=== PATIENT | male | born 1965 | race Caucasian/White ===

== ENCOUNTER 2018-12-01 10:40 | Observation (INO) | payer BC ==
[~2018-12-01] VITALS: Ht 180.3 cm; Wt 99.0 kg
[2018-12-01 11:08] LABS: BASO % 1 % (0-3); EOS # 0.1 x10^3/uL (0.0-0.7); EOS % 2 % (0-3); HEMATOCRIT 44.4 % (39.0-53.0); HEMOGLOBIN 14.6 g/dL (13.0-17.5); LYMPH # 2.3 x10^3/uL (1.0-4.8); LYMPH % 40 % (24-48); MEAN CORPUSCULAR HEMOGLOBIN 30 pg (25-35); MEAN CORPUSCULAR HGB CONC 33 g/dL (31-37); MEAN CORPUSCULAR VOLUME 90 fL (79-100); MONO # 0.3 x10^3/uL (0.0-1.1); MONO % 6 % (0-9); NEUT % 52 % (31-73); PLATELET COUNT 298 x10^3/uL (140-400); RED BLOOD COUNT 4.92 x10^6/uL (4.30-5.70); RED CELL DISTRIBUTION WIDTH 13.3 % (11.5-14.5); WHITE BLOOD COUNT 5.8 x10^3/uL (4.0-11.0)
--- NOTE | 2018-12-01 11:19 | RAD ---
CHEST AP ONLY Clinical indications: CHEST PAIN COMPARISON: None available. Findings: Old granulomatous disease is evident. No acute lung infiltrate or pleural effusion or pulmonary edema or lung mass or pneumothorax is seen. The heart size, pulmonary vasculature, mediastinum and both caridad are unremarkable. Impression: No acute radiographic abnormality is seen. Electronically signed by: Haresh Petersen MD (12/01/2018 11:14 AM) [facility]
[2018-12-01 11:20] LABS: CALCIUM 9.2 mg/dL (8.5-10.1); GFR 78.8; POTASSIUM 4.1 mmol/L (3.5-5.1); PROTHROMBIN TIME PATIENT 12.5 SEC (11.7-14.0)
[2018-12-01 11:25] LABS: ALBUMIN 3.7 g/dL (3.4-5.0); DIRECT BILIRUBIN 0.2 mg/dL (0.0-0.2); TOTAL BILIRUBIN 0.6 mg/dL (0.2-1.0); TOTAL PROTEIN 7.4 g/dL (6.4-8.2)
[2018-12-01] MEDS ORDERED: ONDANSETRON PF 4 MG/2 ML VIAL. IV PRN ×2 (12:00→12:45)
[2018-12-01] MEDS ORDERED: NITROGLYCERIN SUBLINGUAL 0.4 MG BOTTLE OF 25. SL PRN (12:00)
[2018-12-01] MEDS ORDERED: MORPHINE SULFATE 4 MG/ML VIAL. IV PRN (12:00)
[2018-12-01] MEDS ORDERED: ACETAMINOPHEN 500 MG TABLET PO PRN (12:45)
[2018-12-01] MEDS ORDERED: NICOTINE 21MG PATCH. TD PRN (12:45)
[2018-12-01] MEDS ORDERED: diphenhydrAMINE HCL 25 MG CAPSULE PO PRN (12:45)
--- NOTE | 2018-12-01 13:16 | EKG ---
[facility] [address] [place] [address] Test Date: 2018-12-01 Test Time: 10:45:28 Pat Name: KURT CHAPMAN Department: Room: Gender: M Assessment Analyst: : 1965 Requested By: RADHA COX Order Number: [id number] Reading MD: Harish Robertson Measurements Intervals [place] Rate: 59 P: -22 FL: 154 QRS: 6 QRSD: 88 T: 15 QT: 382 QTc: 378 Interpretive Statements SINUS RHYTHM NORMAL ECG Electronically Signed On 12-07-2018 9:32:28 [employer] PROFESSIONAL by Harish Robertson
--- NOTE | 2018-12-01 13:18 | PDOC1 ---
History and Physical Date of Admission Date of Admission DATE: 12/01/18 TIME: 13:14 Identification/Chief Complaint Chief Complaint chest pressure Source Source: Caregiver, Chart review, Patient History of Present Illness History of Present Illness 33-year-old male with strong family history of CAD, father at age 35 and at age 60s from CHF, chest pressure midsternal for the past 5 days. He admits he has been stressed lately. No diaphoresis or presyncopal symptoms. No identifiable alleviating factors. NO radiation to the jaw or arm, EKG and first troponin negative but admitted to rule out because of strong family history. Patient denies smoking or alcohol or street drugs. Patient does not take any home meds, nondiabetic, no known cardiopulmonary disease personally Past Medical History Cardiovascular: No pertinent hx Pulmonary: No pertinent hx GI: No pertinent hx Heme/Onc: No pertinent hx Hepatobiliary: No pertinent hx Psych: No pertinent hx Rheumatologic: No pertinent hx Infectious disease: No pertinent hx ENT: No pertinent hx Renal/: No pertinent hx Endocrine: No pertinent hx Dermatology: No pertinent hx Past Surgical History Past Surgical History: Total knee replacement Family History Family History: Coronary Artery Disease, Heart Disease Social History Smoke: No ALCOHOL: none Drugs: None Current Medications Current Medications Current Medications Ondansetron HCl (Zofran) 4 mg PRN Q8HRS PRN IV NAUSEA/VOMITING; Start 12/01/18 at 12:00; Stop 12/01/18 at 12:38; Status DC Morphine Sulfate (Morphine Sulfate) 2 mg PRN Q2HR PRN IV PAIN; Start 12/01/18 at 12:00; Stop 12/02/18 at 11:59 Sodium Chloride 1,000 ml @ 100 mls/hr Q10H IV ; Start 12/01/18 at 11:47; Stop 12/02/18 at 11:46 Nitroglycerin (Nitrostat) 0.4 mg PRN Q5MIN PRN SL CHEST PAIN; Start 12/01/18 at 12:00 Ondansetron HCl (Zofran) 4 mg PRN Q6HRS PRN IV NAUSEA/VOMITING; Start 12/01/18 at 12:45 Diphenhydramine HCl (Benadryl) 25 mg PRN QHS PRN PO INSOMNIA; Start 12/01/18 at 12:45 Acetaminophen (Tylenol) 500 mg PRN Q6HRS PRN PO MILD PAIN / TEMP; Start at 12:45 Nicotine (Nicoderm Cq 21mg) 1 patch PRN DAILY PRN TD SMOKING CESSATION; Start 12/01/18 at 12:45 Allergies Allergies: Coded Allergies: No Known Drug Allergies (Unverified , 12/01/18) ROS Review of System As per history of present illness, the rest of ROS 14 point negative Physical Exam General: Alert, Oriented X3, Cooperative, No acute distress HEENT: Atraumatic, PERRLA, EOMI Lungs: Clear to auscultation, Normal air movement Heart: S1S2, RRR, no thrills, no rubs, no gallops, no murmurs Cardiovascular: S1, S2 Abdomen: Normal bowel sounds, Soft, No tenderness, No hepatosplenomegaly, No masses Male Genitals Exam: normal genitalia, normal prostate Rectal Exam: not examined PELVIC: Nml ext genitalia Extremities: No clubbing, No cyanosis, No edema, Normal pulses, No tenderness/ swelling Skin: No rashes, No breakdown, No significant lesion Neuro: Normal gait, Normal speech, Strength at 5/5 X4 ext, Normal tone, Sensation intact, Cranial nerves 3-12 NL, Reflexes 2+ Psych/Mental Status: Mental status NL, Mood NL Vitals Vitals Vital Signs Date Time Temp Pulse Resp B/P (MAP) Pulse Ox O2 Delivery O2 Flow Rate FiO2 12/01/18 10:42 98.0 65 16 122/67 (85) 99 Room Air 98.0 Labs Labs Laboratory Tests Test 12/01/18 10:55 White Blood Count 5.8 x10^3/uL (4.0-11.0) Red Blood Count 4.92 x10^6/uL (4.30-5.70) Hemoglobin 14.6 g/dL (13.0-17.5) Hematocrit 44.4 % (39.0-53.0) Mean Corpuscular Volume 90 fL (79-100) Mean Corpuscular Hemoglobin 30 pg (25-35) Mean Corpuscular Hemoglobin Concent 33 g/dL (31-37) Red Cell Distribution Width 13.3 % (11.5-14.5) Platelet Count 298 x10^3/uL (140-400) Neutrophils (%) (Auto) 52 % (31-73) Lymphocytes (%) (Auto) 40 % (24-48) Monocytes (%) (Auto) 6 % (0-9) Eosinophils (%) (Auto) 2 % (0-3) Basophils (%) (Auto) 1 % (0-3) Neutrophils # (Auto) 3.0 x10^3uL (1.8-7.7) Lymphocytes # (Auto) 2.3 x10^3/uL (1.0-4.8) Monocytes # (Auto) 0.3 x10^3/uL (0.0-1.1) Eosinophils # (Auto) 0.1 x10^3/uL (0.0-0.7) Basophils # (Auto) 0.0 x10^3/uL (0.0-0.2) Prothrombin Time 12.5 SEC (11.7-14.0) Prothromb Time International Ratio 1.0 (0.8-1.1) Activated Partial Thromboplast Time 25 SEC (24-38) Sodium Level 140 mmol/L (136-145) Potassium Level 4.1 mmol/L (3.5-5.1) Chloride Level 104 mmol/L (98-107) Carbon Dioxide Level 31 mmol/L (21-32) Anion Gap 5 (6-14) Blood Urea Nitrogen 18 mg/dL (8-26) Creatinine 1.0 mg/dL (0.7-1.3) Estimated GFR (Cockcroft-Gault) 78.8 Glucose Level 91 mg/dL (70-99) Calcium Level 9.2 mg/dL (8.5-10.1) Total Bilirubin 0.6 mg/dL (0.2-1.0) Direct Bilirubin 0.2 mg/dL (0.0-0.2) Aspartate Amino Transf (AST/SGOT) 18 U/L (15-37) Alanine Aminotransferase (ALT/SGPT) 35 U/L (16-63) Alkaline Phosphatase 68 U/L (46-116) Troponin I Quantitative < 0.017 ng/mL (0.000-0.055) HU-Xis-T-Type Natriuretic Peptide 40 pg/mL (0-124) Total Protein 7.4 g/dL (6.4-8.2) Albumin 3.7 g/dL (3.4-5.0) Lipase 138 U/L (73-393) Laboratory Tests Test 12/01/18 10:55 White Blood Count 5.8 x10^3/uL (4.0-11.0) Red Blood Count 4.92 x10^6/uL (4.30-5.70) Hemoglobin 14.6 g/dL (13.0-17.5) Hematocrit 44.4 % (39.0-53.0) Mean Corpuscular Volume 90 fL (79-100) Mean Corpuscular Hemoglobin 30 pg (25-35) Mean Corpuscular Hemoglobin Concent 33 g/dL (31-37) Red Cell Distribution Width 13.3 % (11.5-14.5) Platelet Count 298 x10^3/uL (140-400) Neutrophils (%) (Auto) 52 % (31-73) Lymphocytes (%) (Auto) 40 % (24-48) Monocytes (%) (Auto) 6 % (0-9) Eosinophils (%) (Auto) 2 % (0-3) Basophils (%) (Auto) 1 % (0-3) Neutrophils # (Auto) 3.0 x10^3uL (1.8-7.7) Lymphocytes # (Auto) 2.3 x10^3/uL (1.0-4.8) Monocytes # (Auto) 0.3 x10^3/uL (0.0-1.1) Eosinophils # (Auto) 0.1 x10^3/uL (0.0-0.7) Basophils # (Auto) 0.0 x10^3/uL (0.0-0.2) Prothrombin Time 12.5 SEC (11.7-14.0) Prothromb Time International Ratio 1.0 (0.8-1.1) Activated Partial Thromboplast Time 25 SEC (24-38) Sodium Level 140 mmol/L (136-145) Potassium Level 4.1 mmol/L (3.5-5.1) Chloride Level 104 mmol/L (98-107) Carbon Dioxide Level 31 mmol/L (21-32) Anion Gap 5 (6-14) Blood Urea Nitrogen 18 mg/dL (8-26) Creatinine 1.0 mg/dL (0.7-1.3) Estimated GFR (Cockcroft-Gault) 78.8 Glucose Level 91 mg/dL (70-99) Calcium Level 9.2 mg/dL (8.5-10.1) Total Bilirubin 0.6 mg/dL (0.2-1.0) Direct Bilirubin 0.2 mg/dL (0.0-0.2) Aspartate Amino Transf (AST/SGOT) 18 U/L (15-37) Alanine Aminotransferase (ALT/SGPT) 35 U/L (16-63) Alkaline Phosphatase 68 U/L (46-116) Troponin I Quantitative < 0.017 ng/mL (0.000-0.055) AK-Jjt-X-Type Natriuretic Peptide 40 pg/mL (0-124) Total Protein 7.4 g/dL (6.4-8.2) Albumin 3.7 g/dL (3.4-5.0) Lipase 138 U/L (73-393) VTE Prophylaxis Ordered VTE Prophylaxis Devices: Yes VTE Pharmacological Prophylaxi: Yes Assessment/Plan Assessment/Plan Chest pain rule out ACS Strong family history CAD, premature Recent stress PLAN: Has been nothing by mouth until cardiac eval Trend enzymes Observation status Doubtful ACS in origin RADHA BUSH MD Dec 01, 2018 13:18
[2018-12-01] MEDS: IV NORMAL SALINE 1000ML BAG 1,000 ML IV SCH ×2 (13:52→21:47)
--- NOTE | 2018-12-01 14:29 | PHYS DOC ---
Past Medical History Past Medical History: No Pertinent History Past Surgical History: Knee Replacement, Tonsillectomy Additional Past Surgical Histo: L KNEE, Alcohol Use: Rarely Drug Use: None Adult General Chief Complaint Chief Complaint: CHEST PAIN HPI HPI 53-year-old gentleman presenting the emergency department today with chest pressure described as a tightening pressure in his chest intermittent for about 2 days. He was seen in urgent care earlier given 4 aspirin which mildly improved his symptoms. Currently the pressure is approximately 2 out of 10. He denies diabetes hyperlipidemia or high cholesterol but does have a family history of heart disease. His father had a heart attack at age 35. His father recently of a massive heart attack as well.The patient denies unilateral leg swelling hemoptysis family or personal history of blood clotting disorders. The pt denies recent immobilization or surgery. Past medical history: Denies Surgical history: Knee and tonsils Social history denies smoking drinks occasionally denies IV drug use. Review of systems is negative for sweatiness of the skin. He denies nausea vomiting fevers or chills. All other review of systems is negative unless otherwise noted in history of present illness. ED course: 53-year-old woman presenting the emergency department today with chest pressure. EKG obtained and reviewed by myself shows sinus rhythm with a regular rate. ST segments congruent. Not suggestive of ACS. Chest x-ray and blood work obtained as well which were unremarkable for acute pathology. Given his story, and family history of heart disease I felt we should keep him for monitoring. I placed admission orders and the patient was then admitted for further treatment and care. Review of Systems Review of Systems SEE ABOVE. Current Medications Current Medications Current Medications Medications (Trade) Dose Ordered Sig/Saji Start Time Stop Time Status Last Admin Dose Admin Sodium Chloride 1,000 ml @ 100 mls/hr Q10H 12/01/18 11:47 12/02/18 11:46 12/01/18 13:52 100 MLS/HR Allergies Allergies Allergies Coded Allergies Type Severity Reaction Last Updated Verified No Known Drug Allergies 12/01/18 No Physical Exam Physical Exam SEE ABOVE Constitutional: Well developed, well nourished, no acute distress, non-toxic appearance. [] HENT: Normocephalic, atraumatic, bilateral external ears normal, oropharynx moist, no oral exudates, nose normal. [] Eyes: PERRLA, EOMI, conjunctiva normal, no discharge. [] Neck: Normal range of motion, no tenderness, supple, no stridor. [] Cardiovascular:Heart rate regular rhythm, no murmur [] Lungs & Thorax: Bilateral breath sounds clear to auscultation [] Abdomen: Bowel sounds normal, soft, no tenderness, no masses, no pulsatile masses. [] Skin: Warm, dry, no erythema, no rash. [] Back: No tenderness, no CVA tenderness. [] Extremities: No tenderness, no cyanosis, no clubbing, ROM intact, no edema. [] Neurologic: Alert and oriented X 3, normal motor function, normal sensory function, no focal deficits noted. [] Psychologic: Affect normal, judgement normal, mood normal. [] Current Patient Data Vital Signs Vital Signs Date Time Temp Pulse Resp B/P (MAP) Pulse Ox O2 Delivery O2 Flow Rate FiO2 12/01/18 10:42 98.0 65 16 122/67 (85) 99 Room Air 98.0 Lab Values Laboratory Tests Test 12/01/18 10:55 White Blood Count 5.8 x10^3/uL (4.0-11.0) Red Blood Count 4.92 x10^6/uL (4.30-5.70) Hemoglobin 14.6 g/dL (13.0-17.5) Hematocrit 44.4 % (39.0-53.0) Mean Corpuscular Volume 90 fL (79-100) Mean Corpuscular Hemoglobin 30 pg (25-35) Mean Corpuscular Hemoglobin Concent 33 g/dL (31-37) Red Cell Distribution Width 13.3 % (11.5-14.5) Platelet Count 298 x10^3/uL (140-400) Neutrophils (%) (Auto) 52 % (31-73) Lymphocytes (%) (Auto) 40 % (24-48) Monocytes (%) (Auto) 6 % (0-9) Eosinophils (%) (Auto) 2 % (0-3) Basophils (%) (Auto) 1 % (0-3) Neutrophils # (Auto) 3.0 x10^3uL (1.8-7.7) Lymphocytes # (Auto) 2.3 x10^3/uL (1.0-4.8) Monocytes # (Auto) 0.3 x10^3/uL (0.0-1.1) Eosinophils # (Auto) 0.1 x10^3/uL (0.0-0.7) Basophils # (Auto) 0.0 x10^3/uL (0.0-0.2) Prothrombin Time 12.5 SEC (11.7-14.0) Prothrombin Time INR 1.0 (0.8-1.1) PTT 25 SEC (24-38) Sodium Level 140 mmol/L (136-145) Potassium Level 4.1 mmol/L (3.5-5.1) Chloride Level 104 mmol/L (98-107) Carbon Dioxide Level 31 mmol/L (21-32) Anion Gap 5 (6-14) L Blood Urea Nitrogen 18 mg/dL (8-26) Creatinine 1.0 mg/dL (0.7-1.3) Estimated GFR (Cockcroft-Gault) 78.8 Glucose Level 91 mg/dL (70-99) Calcium Level 9.2 mg/dL (8.5-10.1) Total Bilirubin 0.6 mg/dL (0.2-1.0) Direct Bilirubin 0.2 mg/dL (0.0-0.2) Aspartate Amino Transferase (AST) 18 U/L (15-37) Alanine Aminotransferase (ALT) 35 U/L (16-63) Alkaline Phosphatase 68 U/L (46-116) Troponin I Quantitative < 0.017 ng/mL (0.000-0.055) DH-Ltr-H-Type Natriuretic Peptide 40 pg/mL (0-124) Total Protein 7.4 g/dL (6.4-8.2) Albumin 3.7 g/dL (3.4-5.0) Lipase 138 U/L (73-393) Thyroid Stimulating Hormone (TSH) 1.241 uIU/mL (0.358-3.74) Laboratory Tests 12/01/18 10:55 Laboratory Tests 12/01/18 10:55 EKG EKG [] Radiology/Procedures Radiology/Procedures [] Course & Med Decision Making Course & Med Decision Making Pertinent Labs and Imaging studies reviewed. (See chart for details) [] Dragon Disclaimer Dragon Disclaimer This electronic medical record was generated, in whole or in part, using a voice recognition dictation system. Departure Departure Impression: Primary Impression: Chest pain Disposition: ADMITTED INPATIENT Admitting Physician: Dulce Briceno Condition: STABLE Referrals: NO PCP (PCP) RADHA COX MD Dec 01, 2018 14:29
--- NOTE | 2018-12-01 15:22 | PDOC2 ---
CARDIAC CONSULT DATE OF CONSULT Date of Consult DATE: 12/01/18 TIME: 15:09 REASON FOR CONSULT Reason for Consult: Chest pain REFERRING PHYSICIAN Referring Physician: Kobi SOURCE Source: Chart review, Patient HISTORY OF PRESENT ILLNESS HISTORY OF PRESENT ILLNESS This is a pleasant 53 yo male admitted for complains of chest pain. He reports this as midchest pressure nonradiating. No nausea associated with this, no jaw or arm pain. Denies any diaphoresis. In the last 2 days he has been feeling irritable and could not figure out why. No new medications. He does take no GERD medications but takes chronic for months of about 660 mg of naproxen daily for his chronic knee pain. Denies any recent falls, heavy lifting, long distance travel. No exertional CP nor GONZALEZ. No HTN, DM or HLP. He takes vit C and penssaid to his right knee. IN the last yr he has gained about 20 pounds. No anxiety or depression. PAST MEDICAL HISTORY Past Medical History OA PAST SURGICAL HISTORY Past Surgical History: Total knee replacement (left) FAMILY HISTORY Family History: Coronary Artery Disease (father at 35 yo) SOCIAL HISTORY Smoke: No ALCOHOL: none Drugs: None Lives: with Family CURRENT MEDICATIONS CURRENT MEDICATIONS Current Medications Medications (Trade) Dose Ordered Sig/Saji Route PRN Reason Start Time Stop Time Status Last Admin Dose Admin Sodium Chloride 1,000 ml @ 100 mls/hr Q10H IV 12/01/18 11:47 12/02/18 11:46 12/01/18 13:52 Nitroglycerin (Nitrostat) 0.4 mg PRN Q5MIN PRN SL CHEST PAIN 12/01/18 12:00 12/01/18 13:53 ALLERGIES ALLERGIES: Coded Allergies: No Known Drug Allergies (Unverified , 12/01/18) ROS Review of System 14 point ROS evaluated with pertinent positives noted per HPI PHYSICAL EXAM General: Alert, Oriented X3, Cooperative, No acute distress HEENT: Atraumatic, Mucous membr. moist/pink Lungs: Clear to auscultation, Normal air movement Heart: Regular rate (SR), Normal S1, Normal S2, No murmurs Abdomen: Soft, No tenderness Extremities: No cyanosis, No edema Skin: No breakdown, No significant lesion Neuro: Normal speech, Sensation intact Psych/Mental Status: Mental status NL, Mood NL MUSCULOSKELETAL: Osteoarthritic changes both hands VITALS VITALS Vital Signs Date Time Temp Pulse Resp B/P (MAP) Pulse Ox O2 Delivery O2 Flow Rate FiO2 12/01/18 13:53 62 119/70 12/01/18 10:42 98.0 16 99 Room Air 98.0 LABS Lab: Laboratory Tests Test 12/01/18 10:55 White Blood Count 5.8 x10^3/uL (4.0-11.0) Red Blood Count 4.92 x10^6/uL (4.30-5.70) Hemoglobin 14.6 g/dL (13.0-17.5) Hematocrit 44.4 % (39.0-53.0) Mean Corpuscular Volume 90 fL (79-100) Mean Corpuscular Hemoglobin 30 pg (25-35) Mean Corpuscular Hemoglobin Concent 33 g/dL (31-37) Red Cell Distribution Width 13.3 % (11.5-14.5) Platelet Count 298 x10^3/uL (140-400) Neutrophils (%) (Auto) 52 % (31-73) Lymphocytes (%) (Auto) 40 % (24-48) Monocytes (%) (Auto) 6 % (0-9) Eosinophils (%) (Auto) 2 % (0-3) Basophils (%) (Auto) 1 % (0-3) Neutrophils # (Auto) 3.0 x10^3uL (1.8-7.7) Lymphocytes # (Auto) 2.3 x10^3/uL (1.0-4.8) Monocytes # (Auto) 0.3 x10^3/uL (0.0-1.1) Eosinophils # (Auto) 0.1 x10^3/uL (0.0-0.7) Basophils # (Auto) 0.0 x10^3/uL (0.0-0.2) Prothrombin Time 12.5 SEC (11.7-14.0) Prothromb Time International Ratio 1.0 (0.8-1.1) Activated Partial Thromboplast Time 25 SEC (24-38) Sodium Level 140 mmol/L (136-145) Potassium Level 4.1 mmol/L (3.5-5.1) Chloride Level 104 mmol/L (98-107) Carbon Dioxide Level 31 mmol/L (21-32) Anion Gap 5 (6-14) Blood Urea Nitrogen 18 mg/dL (8-26) Creatinine 1.0 mg/dL (0.7-1.3) Estimated GFR (Cockcroft-Gault) 78.8 Glucose Level 91 mg/dL (70-99) Calcium Level 9.2 mg/dL (8.5-10.1) Total Bilirubin 0.6 mg/dL (0.2-1.0) Direct Bilirubin 0.2 mg/dL (0.0-0.2) Aspartate Amino Transf (AST/SGOT) 18 U/L (15-37) Alanine Aminotransferase (ALT/SGPT) 35 U/L (16-63) Alkaline Phosphatase 68 U/L (46-116) Troponin I Quantitative < 0.017 ng/mL (0.000-0.055) XE-Shx-F-Type Natriuretic Peptide 40 pg/mL (0-124) Total Protein 7.4 g/dL (6.4-8.2) Albumin 3.7 g/dL (3.4-5.0) Lipase 138 U/L (73-393) Thyroid Stimulating Hormone (TSH) 1.241 uIU/mL (0.358-3.74) ASSESSMENT/PLAN ASSESSMENT/PLAN Atypical CP: likely GI potentially NSAID induced. Doubt ACS. Family hx of premature CAD: Father at 35 yo with IN Recommendations 1. Will need PPI. Defer analgesic to PCP 2. Lipid panel, TTE. and trend troponin 3. Given his significant family hx of premature CAD will consider for outpt stress test unless trop and TTE shows significant changes. LUIS LAL APRN Dec 01, 2018 15:22
[2018-12-01 15:45] VITALS: BP 144/71
--- NOTE | 2018-12-01 16:06 | CARD ---
MR#: [id number] Date of Study: 12/01/2018 Ordering Physician: LUIS LAL, Referring Physician: RADHA BUSH, Tech: Chiara Elliott APPROVED REPORT EXAM: Two-dimensional and M-mode echocardiogram with Doppler and color Doppler. Other Information Quality : GoodHR: 62bpm INDICATION Chest Pain 2D DIMENSIONS RVDd2.8 (2.9-3.5cm)Left Atrium(2D)3.8 (1.6-4.0cm) IVSd1.0 (0.7-1.1cm)Aortic Root(2D)2.7 (2.0-3.7cm) LVDd5.1 (3.9-5.9cm)LVOT Diameter2.1 (1.8-2.4cm) PWd1.4 (0.7-1.1cm)LVDs3.3 (2.5-4.0cm) FS (%) 36.4 %SV82.6 ml LVEF(%)65.8 (>50%) Aortic Valve AoV Peak Sonido.127.5cm/sAoV VTI22.2cm AO Peak GR.6.5mmHgLVOT Peak Sonido.100.5cm/s LVOT VTI 19.42cmAO Mean GR.4mmHg ZAKIYA (VMAX)2.19wy7LHK (VTI)3.14cm2 Mitral Valve MV E Apoeuotr68.4cm/sMV DECEL [id number] MV A Zjoaunws38.0cm/sMV MOT99rr E/A Ratio1.6MVA (PHT)5.09cm2 TDI E/Lateral E'6.7E/Medial E'7.7 Pulmonary Valve PV Peak Oslkbsff121.8cm/sPV Peak Grad.9mmHg Tricuspid Valve TR P. Uexgpkai688lc/sRAP TVDBXICZ8zhKd TR Peak Gr.74zjOhWUKD55tnCv Pulmonary Vein S1 Wqworiiw08.2cm/sD2 Ppaplukw47.5cm/s PVa [id number] LEFT VENTRICLE The left ventricle is normal size. There is borderline concentric left ventricular hypertrophy. The l eft ventricular systolic function is normal and the ejection fraction is within normal range. The Eje ction Fraction is 50-55%. There is normal LV segmental wall motion. The left ventricular diastolic fu nction and filling is normal for age. RIGHT VENTRICLE The right ventricle is normal size. There is normal right ventricular wall thickness. The right ventr icular systolic function is normal. ATRIA The left atrium size is normal. The right atrium size is normal. The interatrial septum is intact wit h no evidence for an atrial septal defect or patent foramen ovale as noted on 2-D or Doppler imaging. AORTIC VALVE The aortic valve is thickened but opens well. Doppler and Color Flow revealed no significant aortic r egurgitation. There is no significant aortic valvular stenosis. MITRAL VALVE The mitral valve is normal in structure and function. There is no evidence of mitral valve prolapse. There is no mitral valve stenosis. Doppler and Color Flow revealed trace mitral regurgitation. TRICUSPID VALVE The tricuspid valve is normal in structure and function. Doppler and Color Flow revealed trace tricus pid regurgitation. There is no tricuspid valve stenosis. PULMONIC VALVE The pulmonic valve is not well visualized. Doppler and Color Flow revealed no pulmonic valvular regur gitation. There is no pulmonic valvular stenosis. GREAT VESSELS The aortic root is normal in size. The IVC is normal in size and collapses >50% with inspiration. PERICARDIAL EFFUSION There is no evidence of significant pericardial effusion. Critical Notification Critical Value: No <Conclusion> The left ventricular systolic function is normal and the ejection fraction is within normal range. Th e Ejection Fraction is 50-55%. There is normal LV segmental wall motion. Septal motion suggestive of conduction defect. Signed by : Lalit Sood, Electronically Approved : 12/01/2018 16:04:02
[2018-12-01 16:09] LABS: CHOLESTEROL/HDL RATIO 4.9
[2018-12-01] MEDS: PANTOPRAZOLE 40 MG TABLET.DR. PO SCH (17:22)
[2018-12-01 19:00] VITALS: BP 120/61
[2018-12-01] MEDS ORDERED: ATORVASTATIN CALCIUM 20 MG TABLET PO SCH (21:00)
[2018-12-01 23:00] VITALS: BP 111/56
[2018-12-02 03:00] VITALS: BP 116/58
[2018-12-02 06:15] LABS: BASO % 1 % (0-3); EOS # 0.1 x10^3/uL (0.0-0.7); EOS % 2 % (0-3); HEMATOCRIT 42.3 % (39.0-53.0); LYMPH # 2.5 x10^3/uL (1.0-4.8); LYMPH % 41 % (24-48); MEAN CORPUSCULAR HEMOGLOBIN 30 pg (25-35); MEAN CORPUSCULAR HGB CONC 33 g/dL (31-37); MEAN CORPUSCULAR VOLUME 90 fL (79-100); MONO # 0.5 x10^3/uL (0.0-1.1); MONO % 8 % (0-9); NEUT % 49 % (31-73); PLATELET COUNT 285 x10^3/uL (140-400); RED CELL DISTRIBUTION WIDTH 13.1 % (11.5-14.5); WHITE BLOOD COUNT 6.2 x10^3/uL (4.0-11.0)
[2018-12-02 06:30] LABS: CREATININE 1.1 mg/dL (0.7-1.3); GFR 70.6; POTASSIUM 3.9 mmol/L (3.5-5.1)
[2018-12-02 07:10] VITALS: BP 125/73
[2018-12-02] MEDS: IV NORMAL SALINE 1000ML BAG 1,000 ML IV SCH (07:47)
[2018-12-02] MEDS: PANTOPRAZOLE 40 MG TABLET.DR. PO SCH (08:07)
[2018-12-02] MEDS ORDERED: ASPI325T8 PO (08:59)
[2018-12-02] MEDS ORDERED: ATOR20TA58 PO (08:59)
--- NOTE | 2018-12-02 09:01 | PDOC3 ---
Discharge Summary Visit Information Date of Admission: Dec 01, 2018 Date of Discharge: Dec 02, 2018 Admitting Diagnosis: chest pain Final Diagnosis angina chest pain hyperlipids tobacco use disorder Problems Medical Problems: (1) Chest pain Status: Acute Brief Hospital Course Allergies Allergies Coded Allergies Type Severity Reaction Last Updated Verified No Known Drug Allergies 12/01/18 No Vital Signs Vital Signs Date Time Temp Pulse Resp B/P (MAP) Pulse Ox O2 Delivery O2 Flow Rate FiO2 12/02/18 07:10 98.6 68 16 125/73 (90) 95 Room Air 98.6 Lab Results Laboratory Tests Test 12/01/18 10:55 12/01/18 18:00 12/02/18 04:30 White Blood Count 5.8 x10^3/uL (4.0-11.0) 6.2 x10^3/uL (4.0-11.0) Red Blood Count 4.92 x10^6/uL (4.30-5.70) 4.70 x10^6/uL (4.30-5.70) Hemoglobin 14.6 g/dL (13.0-17.5) 14.0 g/dL (13.0-17.5) Hematocrit 44.4 % (39.0-53.0) 42.3 % (39.0-53.0) Mean Corpuscular Volume 90 fL (79-100) 90 fL (79-100) Mean Corpuscular Hemoglobin 30 pg (25-35) 30 pg (25-35) Mean Corpuscular Hemoglobin Concent 33 g/dL (31-37) 33 g/dL (31-37) Red Cell Distribution Width 13.3 % (11.5-14.5) 13.1 % (11.5-14.5) Platelet Count 298 x10^3/uL (140-400) 285 x10^3/uL (140-400) Neutrophils (%) (Auto) 52 % (31-73) 49 % (31-73) Lymphocytes (%) (Auto) 40 % (24-48) 41 % (24-48) Monocytes (%) (Auto) 6 % (0-9) 8 % (0-9) Eosinophils (%) (Auto) 2 % (0-3) 2 % (0-3) Basophils (%) (Auto) 1 % (0-3) 1 % (0-3) Neutrophils # (Auto) 3.0 x10^3uL (1.8-7.7) 3.0 x10^3uL (1.8-7.7) Lymphocytes # (Auto) 2.3 x10^3/uL (1.0-4.8) 2.5 x10^3/uL (1.0-4.8) Monocytes # (Auto) 0.3 x10^3/uL (0.0-1.1) 0.5 x10^3/uL (0.0-1.1) Eosinophils # (Auto) 0.1 x10^3/uL (0.0-0.7) 0.1 x10^3/uL (0.0-0.7) Basophils # (Auto) 0.0 x10^3/uL (0.0-0.2) 0.0 x10^3/uL (0.0-0.2) Prothrombin Time 12.5 SEC (11.7-14.0) Prothromb Time International Ratio 1.0 (0.8-1.1) Activated Partial Thromboplast Time 25 SEC (24-38) Sodium Level 140 mmol/L (136-145) 139 mmol/L (136-145) Potassium Level 4.1 mmol/L (3.5-5.1) 3.9 mmol/L (3.5-5.1) Chloride Level 104 mmol/L (98-107) 103 mmol/L (98-107) Carbon Dioxide Level 31 mmol/L (21-32) 28 mmol/L (21-32) Anion Gap 5 (6-14) 8 (6-14) Blood Urea Nitrogen 18 mg/dL (8-26) 21 mg/dL (8-26) Creatinine 1.0 mg/dL (0.7-1.3) 1.1 mg/dL (0.7-1.3) Estimated GFR (Cockcroft-Gault) 78.8 70.6 Glucose Level 91 mg/dL (70-99) 88 mg/dL (70-99) Calcium Level 9.2 mg/dL (8.5-10.1) 9.0 mg/dL (8.5-10.1) Total Bilirubin 0.6 mg/dL (0.2-1.0) Direct Bilirubin 0.2 mg/dL (0.0-0.2) Aspartate Amino Transf (AST/SGOT) 18 U/L (15-37) Alanine Aminotransferase (ALT/SGPT) 35 U/L (16-63) Alkaline Phosphatase 68 U/L (46-116) Troponin I Quantitative < 0.017 ng/mL (0.000-0.055) < 0.017 ng/mL (0.000-0.055) FF-Jbj-R-Type Natriuretic Peptide 40 pg/mL (0-124) Total Protein 7.4 g/dL (6.4-8.2) Albumin 3.7 g/dL (3.4-5.0) Triglycerides Level 214 mg/dL (0-150) Cholesterol Level 238 mg/dL (0-200) LDL Cholesterol, Calculated 146 mg/dL (0-100) VLDL Cholesterol, Calculated 43 mg/dL (0-40) Non-HDL Cholesterol Calculated 189 mg/dL (0-129) HDL Cholesterol 49 mg/dL (40-60) Cholesterol/HDL Ratio 4.9 Lipase 138 U/L (73-393) Thyroid Stimulating Hormone (TSH) 1.241 uIU/mL (0.358-3.74) Laboratory Tests Test 12/01/18 10:55 12/01/18 18:00 12/02/18 04:30 White Blood Count 5.8 x10^3/uL (4.0-11.0) 6.2 x10^3/uL (4.0-11.0) Red Blood Count 4.92 x10^6/uL (4.30-5.70) 4.70 x10^6/uL (4.30-5.70) Hemoglobin 14.6 g/dL (13.0-17.5) 14.0 g/dL (13.0-17.5) Hematocrit 44.4 % (39.0-53.0) 42.3 % (39.0-53.0) Mean Corpuscular Volume 90 fL (79-100) 90 fL (79-100) Mean Corpuscular Hemoglobin 30 pg (25-35) 30 pg (25-35) Mean Corpuscular Hemoglobin Concent 33 g/dL (31-37) 33 g/dL (31-37) Red Cell Distribution Width 13.3 % (11.5-14.5) 13.1 % (11.5-14.5) Platelet Count 298 x10^3/uL (140-400) 285 x10^3/uL (140-400) Neutrophils (%) (Auto) 52 % (31-73) 49 % (31-73) Lymphocytes (%) (Auto) 40 % (24-48) 41 % (24-48) Monocytes (%) (Auto) 6 % (0-9) 8 % (0-9) Eosinophils (%) (Auto) 2 % (0-3) 2 % (0-3) Basophils (%) (Auto) 1 % (0-3) 1 % (0-3) Neutrophils # (Auto) 3.0 x10^3uL (1.8-7.7) 3.0 x10^3uL (1.8-7.7) Lymphocytes # (Auto) 2.3 x10^3/uL (1.0-4.8) 2.5 x10^3/uL (1.0-4.8) Monocytes # (Auto) 0.3 x10^3/uL (0.0-1.1) 0.5 x10^3/uL (0.0-1.1) Eosinophils # (Auto) 0.1 x10^3/uL (0.0-0.7) 0.1 x10^3/uL (0.0-0.7) Basophils # (Auto) 0.0 x10^3/uL (0.0-0.2) 0.0 x10^3/uL (0.0-0.2) Prothrombin Time 12.5 SEC (11.7-14.0) Prothromb Time International Ratio 1.0 (0.8-1.1) Activated Partial Thromboplast Time 25 SEC (24-38) Sodium Level 140 mmol/L (136-145) 139 mmol/L (136-145) Potassium Level 4.1 mmol/L (3.5-5.1) 3.9 mmol/L (3.5-5.1) Chloride Level 104 mmol/L (98-107) 103 mmol/L (98-107) Carbon Dioxide Level 31 mmol/L (21-32) 28 mmol/L (21-32) Anion Gap 5 (6-14) 8 (6-14) Blood Urea Nitrogen 18 mg/dL (8-26) 21 mg/dL (8-26) Creatinine 1.0 mg/dL (0.7-1.3) 1.1 mg/dL (0.7-1.3) Estimated GFR (Cockcroft-Gault) 78.8 70.6 Glucose Level 91 mg/dL (70-99) 88 mg/dL (70-99) Calcium Level 9.2 mg/dL (8.5-10.1) 9.0 mg/dL (8.5-10.1) Total Bilirubin 0.6 mg/dL (0.2-1.0) Direct Bilirubin 0.2 mg/dL (0.0-0.2) Aspartate Amino Transf (AST/SGOT) 18 U/L (15-37) Alanine Aminotransferase (ALT/SGPT) 35 U/L (16-63) Alkaline Phosphatase 68 U/L (46-116) Troponin I Quantitative < 0.017 ng/mL (0.000-0.055) < 0.017 ng/mL (0.000-0.055) TD-Pca-Q-Type Natriuretic Peptide 40 pg/mL (0-124) Total Protein 7.4 g/dL (6.4-8.2) Albumin 3.7 g/dL (3.4-5.0) Triglycerides Level 214 mg/dL (0-150) Cholesterol Level 238 mg/dL (0-200) LDL Cholesterol, Calculated 146 mg/dL (0-100) VLDL Cholesterol, Calculated 43 mg/dL (0-40) Non-HDL Cholesterol Calculated 189 mg/dL (0-129) HDL Cholesterol 49 mg/dL (40-60) Cholesterol/HDL Ratio 4.9 Lipase 138 U/L (73-393) Thyroid Stimulating Hormone (TSH) 1.241 uIU/mL (0.358-3.74) Brief Hospital Course Mr. Arteaga is a 53 old male, admit with chest pain, pain better with nitro CV consult, echo, EF50%, good wall motion, they will follow outpatient with CV, tobacco cessation, exercise, weight managment, Discharge Information Condition at Discharge: Improved Follow Up: Weeks Disposition/Orders: D/C to Home Scheduled Atorvastatin Calcium (Atorvastatin Calcium) 20 Mg Tablet, 20 MG PO QHS for cholesterol, #30 Ref 3 Prescribed by: COURTNEY العلي on 12/02/18 0859 Scheduled PRN Aspirin (Aspirin) 325 Mg Tablet, 1 TAB PO DAILY PRN for CHEST PAIN, #100 Prescribed by: COURTNEY العلي on 12/02/18 0859 Patient Instructions Patient Instructions > 30- min obs COURTNEY العلي MD Dec 02, 2018 09:01
--- NOTE | 2018-12-02 13:18 | PDOC ---
PROGRESS NOTES Subjective Subjective Patient seen and examined The patient looks and feels better today. Objective Objective Vital Signs Date Time Temp Pulse Resp B/P (MAP) Pulse Ox O2 Delivery O2 Flow Rate FiO2 12/02/18 08:00 Room Air 12/02/18 07:10 98.6 68 16 125/73 (90) 95 98.6 Intake and Output 12/02/18 07:01 Intake Total 250 ml Balance 250 ml Intake Oral 250 ml # Voids 2 Physical Exam Abdomen: Normal bowel sounds Heart: Regular rate General: No acute distress Lungs: Clear to auscultation Assessment Assessment Problems Medical Problems: (1) Chest pain Status: Acute Atypical chest pain. No acute ischemic changes. Troponins normal. Echocardiogram shows normal left ventricular systolic function. We'll continue present medications. We'll contact for outpatient stress testing. Elevated LDL.LDL. Patient has been placed on a statin. Comment Review of Relevant I have reviewed the following items boyd (where applicable) has been applied. Labs Laboratory Tests Test 12/01/18 10:55 12/01/18 18:00 12/02/18 04:30 White Blood Count 5.8 x10^3/uL (4.0-11.0) 6.2 x10^3/uL (4.0-11.0) Red Blood Count 4.92 x10^6/uL (4.30-5.70) 4.70 x10^6/uL (4.30-5.70) Hemoglobin 14.6 g/dL (13.0-17.5) 14.0 g/dL (13.0-17.5) Hematocrit 44.4 % (39.0-53.0) 42.3 % (39.0-53.0) Mean Corpuscular Volume 90 fL (79-100) 90 fL (79-100) Mean Corpuscular Hemoglobin 30 pg (25-35) 30 pg (25-35) Mean Corpuscular Hemoglobin Concent 33 g/dL (31-37) 33 g/dL (31-37) Red Cell Distribution Width 13.3 % (11.5-14.5) 13.1 % (11.5-14.5) Platelet Count 298 x10^3/uL (140-400) 285 x10^3/uL (140-400) Neutrophils (%) (Auto) 52 % (31-73) 49 % (31-73) Lymphocytes (%) (Auto) 40 % (24-48) 41 % (24-48) Monocytes (%) (Auto) 6 % (0-9) 8 % (0-9) Eosinophils (%) (Auto) 2 % (0-3) 2 % (0-3) Basophils (%) (Auto) 1 % (0-3) 1 % (0-3) Neutrophils # (Auto) 3.0 x10^3uL (1.8-7.7) 3.0 x10^3uL (1.8-7.7) Lymphocytes # (Auto) 2.3 x10^3/uL (1.0-4.8) 2.5 x10^3/uL (1.0-4.8) Monocytes # (Auto) 0.3 x10^3/uL (0.0-1.1) 0.5 x10^3/uL (0.0-1.1) Eosinophils # (Auto) 0.1 x10^3/uL (0.0-0.7) 0.1 x10^3/uL (0.0-0.7) Basophils # (Auto) 0.0 x10^3/uL (0.0-0.2) 0.0 x10^3/uL (0.0-0.2) Prothrombin Time 12.5 SEC (11.7-14.0) Prothromb Time International Ratio 1.0 (0.8-1.1) Activated Partial Thromboplast Time 25 SEC (24-38) Sodium Level 140 mmol/L (136-145) 139 mmol/L (136-145) Potassium Level 4.1 mmol/L (3.5-5.1) 3.9 mmol/L (3.5-5.1) Chloride Level 104 mmol/L (98-107) 103 mmol/L (98-107) Carbon Dioxide Level 31 mmol/L (21-32) 28 mmol/L (21-32) Anion Gap 5 (6-14) 8 (6-14) Blood Urea Nitrogen 18 mg/dL (8-26) 21 mg/dL (8-26) Creatinine 1.0 mg/dL (0.7-1.3) 1.1 mg/dL (0.7-1.3) Estimated GFR (Cockcroft-Gault) 78.8 70.6 Glucose Level 91 mg/dL (70-99) 88 mg/dL (70-99) Calcium Level 9.2 mg/dL (8.5-10.1) 9.0 mg/dL (8.5-10.1) Total Bilirubin 0.6 mg/dL (0.2-1.0) Direct Bilirubin 0.2 mg/dL (0.0-0.2) Aspartate Amino Transf (AST/SGOT) 18 U/L (15-37) Alanine Aminotransferase (ALT/SGPT) 35 U/L (16-63) Alkaline Phosphatase 68 U/L (46-116) Troponin I Quantitative < 0.017 ng/mL (0.000-0.055) < 0.017 ng/mL (0.000-0.055) TA-Djj-E-Type Natriuretic Peptide 40 pg/mL (0-124) Total Protein 7.4 g/dL (6.4-8.2) Albumin 3.7 g/dL (3.4-5.0) Triglycerides Level 214 mg/dL (0-150) Cholesterol Level 238 mg/dL (0-200) LDL Cholesterol, Calculated 146 mg/dL (0-100) VLDL Cholesterol, Calculated 43 mg/dL (0-40) Non-HDL Cholesterol Calculated 189 mg/dL (0-129) HDL Cholesterol 49 mg/dL (40-60) Cholesterol/HDL Ratio 4.9 Lipase 138 U/L (73-393) Thyroid Stimulating Hormone (TSH) 1.241 uIU/mL (0.358-3.74) Laboratory Tests Test 12/01/18 18:00 12/02/18 04:30 Troponin I Quantitative < 0.017 ng/mL (0.000-0.055) White Blood Count 6.2 x10^3/uL (4.0-11.0) Red Blood Count 4.70 x10^6/uL (4.30-5.70) Hemoglobin 14.0 g/dL (13.0-17.5) Hematocrit 42.3 % (39.0-53.0) Mean Corpuscular Volume 90 fL (79-100) Mean Corpuscular Hemoglobin 30 pg (25-35) Mean Corpuscular Hemoglobin Concent 33 g/dL (31-37) Red Cell Distribution Width 13.1 % (11.5-14.5) Platelet Count 285 x10^3/uL (140-400) Neutrophils (%) (Auto) 49 % (31-73) Lymphocytes (%) (Auto) 41 % (24-48) Monocytes (%) (Auto) 8 % (0-9) Eosinophils (%) (Auto) 2 % (0-3) Basophils (%) (Auto) 1 % (0-3) Neutrophils # (Auto) 3.0 x10^3uL (1.8-7.7) Lymphocytes # (Auto) 2.5 x10^3/uL (1.0-4.8) Monocytes # (Auto) 0.5 x10^3/uL (0.0-1.1) Eosinophils # (Auto) 0.1 x10^3/uL (0.0-0.7) Basophils # (Auto) 0.0 x10^3/uL (0.0-0.2) Sodium Level 139 mmol/L (136-145) Potassium Level 3.9 mmol/L (3.5-5.1) Chloride Level 103 mmol/L (98-107) Carbon Dioxide Level 28 mmol/L (21-32) Anion Gap 8 (6-14) Blood Urea Nitrogen 21 mg/dL (8-26) Creatinine 1.1 mg/dL (0.7-1.3) Estimated GFR (Cockcroft-Gault) 70.6 Glucose Level 88 mg/dL (70-99) Calcium Level 9.0 mg/dL (8.5-10.1) Medications Current Medications Ondansetron HCl (Zofran) 4 mg PRN Q8HRS PRN IV NAUSEA/VOMITING; Start 12/01/18 at 12:00; Stop 12/01/18 at 12:38; Status DC Morphine Sulfate (Morphine Sulfate) 2 mg PRN Q2HR PRN IV PAIN; Start 12/01/18 at 12:00; Stop 12/02/18 at 11:59; Status DC Sodium Chloride 1,000 ml @ 100 mls/hr Q10H IV Last administered on 12/01/18at 13:52; Start 12/01/18 at 11:47; Stop 12/02/18 at 11:46; Status DC Nitroglycerin (Nitrostat) 0.4 mg PRN Q5MIN PRN SL CHEST PAIN Last administered on 12/01/18at 13:53; Start 12/01/18 at 12:00 Ondansetron HCl (Zofran) 4 mg PRN Q6HRS PRN IV NAUSEA/VOMITING; Start 12/01/18 at 12:45 Diphenhydramine HCl (Benadryl) 25 mg PRN QHS PRN PO INSOMNIA; Start 12/01/18 at 12:45 Acetaminophen (Tylenol) 500 mg PRN Q6HRS PRN PO MILD PAIN / TEMP; Start at 12:45 Nicotine (Nicoderm Cq 21mg) 1 patch PRN DAILY PRN TD SMOKING CESSATION; Start 12/01/18 at 12:45 Pantoprazole Sodium (Protonix) 40 mg DAILYAC PO Last administered on 12/02/18at 08:07; Start 12/01/18 at 15:30 Atorvastatin Calcium (Lipitor) 20 mg QHS PO Last administered on 12/01/18at 20: 48; Start 12/01/18 at 21:00 Active Scripts Active Aspirin 325 Mg Tablet 1 Tab PO DAILY PRN Atorvastatin Calcium 20 Mg Tablet 20 Mg PO QHS Vitals/I & O Vital Sign - Last 24 Hours 12/01/18 12/01/18 12/01/18 12/01/18 13:53 14:30 15:45 16:00 Temp 98.0 98.0 Pulse 62 62 66 Resp 16 18 B/P (MAP) 119/70 110/62 (78) 144/71 (95) Pulse Ox 89 98 O2 Delivery Room Air Room Air Room Air 12/01/18 12/01/18 12/01/18 12/02/18 19:00 19:13 23:00 03:00 Temp 98.0 98.3 97.8 98.0 98.3 97.8 Pulse 74 84 68 Resp 20 20 16 B/P (MAP) 120/61 (80) 111/56 (74) 116/58 (77) Pulse Ox 96 95 96 O2 Delivery Room Air Room Air Room Air Room Air 12/02/18 12/02/18 07:10 08:00 Temp 98.6 98.6 Pulse 68 Resp 16 B/P (MAP) 125/73 (90) Pulse Ox 95 O2 Delivery Room Air Room Air Intake and Output 12/01/18 12/01/18 12/02/18 15:01 23:01 07:01 Intake Total 250 ml 0 ml Balance 250 ml 0 ml ONESIMO SMITH MD Dec 02, 2018 13:18
--- NOTE | 2018-12-02 14:14 | NUR ---
Discharge Note: KURT CHAPMAN [address] Discharge instructions and discharge home medications reviewed with Patient and a copy given. All questions have been answered and understanding verbalized. Instructions and handouts were given. Discontinued lines and drains. Patient discharged to home self care
== END 2018-12-02 12:00 | disposition home or self-care (01) ==
LOC: ER 10:40 → ED HOLD 11:47 → 2 SOUTH 15:46
PROVIDERS: ADMIT Internal Medicine; ATTEND Internal Medicine
DX: I20.9 Angina pectoris, unspecified (principal); I50.9 Heart failure, unspecified; E78.5 Hyperlipidemia, unspecified; Z72.0 Tobacco use; Z82.49 Family history of ischemic heart disease and other diseases of the circulatory system; Z96.652 Presence of left artificial knee joint
CPT/HCPCS: 36415; 71045; 80048; 80061; 80076; 83690; 83880; 84443; 84484; 85025; 85610; 85730; 93005; 93306; 99284; G0378; J7030; G0379

== ENCOUNTER → 2018-12-21 | Outpatient (CLI) | payer BC ==
[2018-12-02 07:10] VITALS: BP 125/73
[~2018-12-21] MED LIST: ASPI325T8 PO; ATOR20TA58 PO; REGADENOSON 0.4 MG/5 ML DISP.SYRIN. IV ONE
--- NOTE | 2018-12-21 10:55 | RAD ---
MR#: [id number] Date of Study: 12/21/2018 Ordering Physician: FABIAN FRANKLIN, Referring Physician: MOE CUNNINGHAM Tech: CHANO Mena APPROVED REPORT Test Type: Pharmacological Stress Nurse/Tech: Le Du RN Test Indications: Chest Pressure Cardiac History: Family history Medications: See Electronic Medical Record Medical History: See Electronic Medical Record Resting ECG: SR Resting Heart Rate: 62 bpm Resting Blood Pressure: 123/65mmHg Pretest Chest Pain: No chest pain Nurse/Tech Notes S1S2, Lungs CTA Consent: The procedure was explained to the patient in lay terms. Informed consent was witnessed. [place] eout was entered into [employer]. History and Stress Test performed by AARTI Louis, GRETA (R) (N) Pharm. Details Pharmacologic stress testing was performed using 0.4mg per 5ml of regadenoson given intravenously ove r 7-10 seconds. Stress Symptoms Dizziness POST EXERCISE Reason for Termination: Infusion complete Max HR: 109 bpm Max Blood Pressure: 134/69mmHg Blood Pressure response to exercise: Normal blood pressure response during stress. Chest Pain: No. Arrhythmia: No. ST Change: No. INTERPRETATION Stress EKG Conclusion: No evidence of stress induced EKG changes. Imaging Protocol IMAGE PROTOCOL: Rest Tc-99m/stress Tc-99m 1 day Rest: Stress: Viability: Radiopharm.Tc99m [id number] Sestamibi Dose10.6mCi 32mCi Duration 15min. 13min. Img Date 12/21/2018 12/21/2018 Inj-Img [id number]. 60min. Rest Admin Site:IV - Left AntecubitalAdministrator:CHANO Mena Stress Admin Site: IV - Left AntecubitalAdministrator: AARTI Louis, GRETA (R)(N) STRESS DATA End Diast. Vol.109.0mlAv. Heart Rate75.0bpm LVEDV index BSA50.0mlCardiac Output0.0L/min End Syst. Vol.35.0mlCO Index BSA0.0L/min LVESV index BSA16.0mlMyocardial Spko610.0g Eject. Pjavduld79.0% Stress Scores Regional WT0.00Summed WT1.00 Regional WM0.00Summed WM4.00 The rest and stress images show normal perfusion, normal contraction and thickening. LV Perf. Quant 17 Seg. SSS2.00 17 Seg. SRS5.00 17 Seg. SDS0.00 Stress Defect Extent (% LAD)0.00Rest Defect Extent (% LAD)7.50Rev. Defect Extent (% LAD)0.00 Stress Defect Extent (% LCX) 15.00Rest Defect Extent (% LCX)16.30Rev. Defect Extent (% LCX)5.00 Stress Defect Extent (% RCA)0.00Rest Defect Extent (% RCA)2.20Rev. Defect Extent (% RCA)0.00 Stress Defect Extent (% SCAR)7.20Rest Defect Extent (% SCAR)13.00Rev. Defect Extent (% SCAR)1.30 Other Information Quality:Good Risk Assessment: Low Risk Conclusion 1. No evidence of EKG changes with stress testing. 2. Normal perfusion at stress/rest. 3. Low risk study. 4. EF > 60%. Signed by : Lalit Sood, Electronically Approved : 12/21/2018 10:54:48
== END | disposition home or self-care (01) ==
LOC: NM 07:28
PROVIDERS: ATTEND Internal Medicine Cardiovascular Disease
DX: R07.89 Other chest pain (principal); Z82.49 Family history of ischemic heart disease and other diseases of the circulatory system
CPT/HCPCS: 78452; 93017; 96374; A9500; J2785

== ENCOUNTER 2019-06-20 10:09 | Emergency (ER) | payer BC ==
[~2019-06-20] VITALS: Ht 180.3 cm; Wt 96.2 kg
[~2019-06-20 10:09] MED LIST changes: -REGADENOSON 0.4 MG/5 ML DISP.SYRIN. IV ONE
[2019-06-20] MEDS ORDERED: IV NORMAL SALINE 1000ML BAG 1,000 ML IV ONE (10:45)
--- NOTE | 2019-06-20 11:05 | RAD ---
TESTICULAR/SCROTUM: 06/20/2019 10:35 AM INDICATION: 53 years old Male. Right testicle and right groin pain. COMPARISON: None. FINDINGS: Grayscale, color Doppler and spectral waveform analysis was utilized. Right: Testicle: Normal in echotexture without focal lesion. Size: 4.3 x 3.1 x 2.4 cm. Flow: Normal color Doppler flow pattern. Epididymis: Hyperemia is noted compatible with epididymitis. Hydrocele: None. Varicocele: None. Left: Testicle: Normal in echotexture without focal lesion. Size: 4.0 x 2.3 x 2.2 cm. Flow: Normal color Doppler flow pattern. Epididymis: There is a 4 mm left epididymal cyst. Hydrocele: None. Varicocele: None. IMPRESSION: 1. Findings are suggestive of right-sided epididymitis without definite orchitis. 2. Small left varicocele with veins measuring up to 1-2 mm. 3. Left-sided epididymal cyst measuring 4 mm. 5. Perfusion is noted the testicles bilaterally at the time of imaging. Electronically signed by: Jillian Drew MD (06/20/2019 11:03 AM) [id number]
[2019-06-20 11:09] LABS: BASO # 0.1 x10^3/uL (0.0-0.2); BASO % 1 % (0-3); EOS # 0.2 x10^3/uL (0.0-0.7); EOS % 2 % (0-3); HEMATOCRIT 41.4 % (39.0-53.0); LYMPH % 25 % (24-48); MEAN CORPUSCULAR HEMOGLOBIN 30 pg (25-35); MEAN CORPUSCULAR HGB CONC 34 g/dL (31-37); MEAN CORPUSCULAR VOLUME 89 fL (79-100); MONO # 0.5 x10^3/uL (0.0-1.1); MONO % 7 % (0-9); NEUT # 5.4 x10^3/uL (1.8-7.7); NEUT % 66 % (31-73); PLATELET COUNT 287 x10^3/uL (140-400); RED BLOOD COUNT 4.64 x10^6/uL (4.30-5.70); WHITE BLOOD COUNT 8.1 x10^3/uL (4.0-11.0)
--- NOTE | 2019-06-20 11:10 | PHYS DOC ---
Past Medical History Past Medical History: No Pertinent History Past Surgical History: Knee Replacement, Tonsillectomy Additional Past Surgical Histo: L KNEE, Alcohol Use: Rarely Drug Use: None Adult General Chief Complaint Chief Complaint: GROIN PAIN HPI HPI Patient is a 53 year old male who presents to the emergency Department today with complaints of right testicle and right groin pain. Patient states he was at work yesterday when he bent over and felt pain in his right groin. Later yester day evening he noticed that his right testicle was hurting. He currently rates the pain a 5 out of 10 unless the testicle is touched then the pain increases to an 8 out of 10. There are no alleviating factors. He denies any swelling in his groin, he states that his right testicle feels a bit swollen. Patient denies any trauma to his testicles. ROS Pt denies anal intercourse, penile discharge, or new sex partners. He denies any dysuria, hematuria, or increased urinary frequency. Pt denies any fever, cough, shortness of breath, abdominal pain, nausea, vomiting, or diarrhea. All other ROS is neg unless otherwise noted in HPI. Review of Systems Review of Systems See Above Current Medications Current Medications Current Medications Medications (Trade) Dose Ordered Sig/Saji Start Time Stop Time Status Last Admin Dose Admin Sodium Chloride 1,000 ml @ 1,000 mls/hr 1X ONCE 06/20/19 10:45 06/20/19 11:44 DC 06/20/19 11:08 1,000 MLS/HR Allergies Allergies Allergies Coded Allergies Type Severity Reaction Last Updated Verified No Known Drug Allergies 12/01/18 No Physical Exam Physical Exam See Above Constitutional: Well developed, well nourished, no acute distress, non-toxic appearance. [] HENT: Normocephalic, atraumatic, bilateral external ears normal, oropharynx moist, no oral exudates, nose normal. [] Eyes: PERRLA, EOMI, conjunctiva normal, no discharge. [] Neck: Normal range of motion, no stridor. [] Lungs & Thorax: Respirations even and unlabored, no retractions, no respiratory distress Abdomen: soft, no tenderness, no masses, no pulsatile masses. [] : Urethral meatus is normal, left testicle nontender, right testicle: warmth and tender to palpation, no palpable hernia in right groin. Skin: Warm, dry, no erythema, no rash. [] Extremities: No cyanosis, ROM intact, no edema. [] Neurologic: Alert and oriented X 3, no focal deficits noted. [] Psychologic: Affect normal, judgement normal, mood normal. [] Current Patient Data Vital Signs Vital Signs Date Time Temp Pulse Resp B/P (MAP) Pulse Ox O2 Delivery O2 Flow Rate FiO2 06/20/19 10:19 98.3 61 18 150/74 (99) 96 Room Air 98.3 Lab Values Laboratory Tests Test 06/20/19 10:58 White Blood Count 8.1 x10^3/uL (4.0-11.0) Red Blood Count 4.64 x10^6/uL (4.30-5.70) Hemoglobin 14.0 g/dL (13.0-17.5) Hematocrit 41.4 % (39.0-53.0) Mean Corpuscular Volume 89 fL (79-100) Mean Corpuscular Hemoglobin 30 pg (25-35) Mean Corpuscular Hemoglobin Concent 34 g/dL (31-37) Red Cell Distribution Width 13.0 % (11.5-14.5) Platelet Count 287 x10^3/uL (140-400) Neutrophils (%) (Auto) 66 % (31-73) Lymphocytes (%) (Auto) 25 % (24-48) Monocytes (%) (Auto) 7 % (0-9) Eosinophils (%) (Auto) 2 % (0-3) Basophils (%) (Auto) 1 % (0-3) Neutrophils # (Auto) 5.4 x10^3/uL (1.8-7.7) Lymphocytes # (Auto) 2.0 x10^3/uL (1.0-4.8) Monocytes # (Auto) 0.5 x10^3/uL (0.0-1.1) Eosinophils # (Auto) 0.2 x10^3/uL (0.0-0.7) Basophils # (Auto) 0.1 x10^3/uL (0.0-0.2) Urine Collection Type Unknown Urine Color Yellow Urine Clarity Clear Urine pH 6.5 Urine Specific [place] 1.020 Urine Protein Negative mg/dL (NEG-TRACE) Urine Glucose (UA) Negative mg/dL (NEG) Urine Ketones (Stick) Negative mg/dL (NEG) Urine Blood Negative (NEG) Urine Nitrite Negative (NEG) Urine Bilirubin Negative (NEG) Urine Urobilinogen Dipstick 0.2 mg/dL (0.2 mg/dL) Urine Leukocyte Esterase Negative (NEG) Urine RBC 0 /HPF (0-2) Urine WBC Occ /HPF (0-4) Urine Squamous Epithelial Cells Few /LPF Urine Bacteria Few /HPF (0-FEW) Urine Mucus Slight /LPF Laboratory Tests 06/20/19 10:58 EKG EKG [] Radiology/Procedures Radiology/Procedures PROCEDURE: TESTICULAR/SCROTUM TESTICULAR/SCROTUM: 06/20/2019 10:35 AM INDICATION: 53 years old Male. Right testicle and right groin pain. COMPARISON: None. FINDINGS: Grayscale, color Doppler and spectral waveform analysis was utilized. Right: Testicle: Normal in echotexture without focal lesion. Size: 4.3 x 3.1 x 2.4 cm. Flow: Normal color Doppler flow pattern. Epididymis: Hyperemia is noted compatible with epididymitis. Hydrocele: None. Varicocele: None. Left: Testicle: Normal in echotexture without focal lesion. Size: 4.0 x 2.3 x 2.2 cm. Flow: Normal color Doppler flow pattern. Epididymis: There is a 4 mm left epididymal cyst. Hydrocele: None. Varicocele: None. IMPRESSION: 1. Findings are suggestive of right-sided epididymitis without definite orchitis. 2. Small left varicocele with veins measuring up to 1-2 mm. 3. Left-sided epididymal cyst measuring 4 mm. 5. Perfusion is noted the testicles bilaterally at the time of imaging.[] Course & Med Decision Making Course & Med Decision Making Pertinent Labs and Imaging studies reviewed. (See chart for details) dx: Epididymitis UA is unremarkable, CBC is unremarkable. Patient was given a liter of normal saline IV while in the emergency department. Is no hernia palpable on exam. Ultrasound revealed: right-sided epididymitis without definite orchitis. Prescription written for Levaquin 500 mg by mouth daily �10 days. Patient was instructed to take Tylenol or ibuprofen as needed for pain. Recommend placing a folded washcloth under testicles for relief of testicle pain while at rest today. Follow-up with primary care doctor if symptoms persist, return to the ER if symptoms worsen. Patient verbalized an understanding of home care, medications, follow-up, and return to ED instructions and was in agreement with the plan of care. [] Dragon Disclaimer Dragon Disclaimer This electronic medical record was generated, in whole or in part, using a voice recognition dictation system. Departure Departure Impression: Primary Impression: Epididymitis, right Disposition: HOME, SELF-CARE Condition: STABLE Referrals: NO PCP (PCP) Patient Instructions: Epididymitis Additional Instructions: Fill the prescription and use as directed. Tylenol or ibuprofen as needed for pain. Recommend placing a folded washcloth under testicles for relief of testicle pain while at rest today. Follow-up with primary care doctor if symptoms persist, return to the ER if symptoms worsen. Scripts Levofloxacin (LEVAQUIN) 500 Mg Tablet 1 TAB PO DAILY, #10 TAB 0 Refills Prov: VINAY OLMOS APRN 06/20/19 VINAY OLMOS APRN Jun 20, 2019 11:10
[2019-06-20 11:12] LABS: BILIRUBIN,URINE NEGATIVE (NEG); CLARITY,URINE CLEAR; COLOR,URINE YELLOW; NITRITE,URINE NEGATIVE (NEG); PH,URINE 6.5; PROTEIN,URINE NEGATIVE (NEG-TRACE); UROBILINOGEN,URINE 0.2 mg/dL (0.2 mg/dL)
[2019-06-20 11:23] LABS: SQUAMOUS EPITHELIAL CELL,UR FEW /LPF
[2019-06-20 11:24] LABS: BACTERIA,URINE FEW /HPF (0-FEW); RBC,URINE 0 /HPF (0-2); WBC,URINE OCC /HPF (0-4)
[2019-06-20 12:27] VITALS: BP 125/68
[2019-06-20] MEDS ORDERED: LEVO500T59 PO (12:27)
== END 2019-06-20 12:45 | disposition home or self-care (01) ==
LOC: ER 10:09
DX: N45.1 Epididymitis (principal); I86.1 Scrotal varices
CPT/HCPCS: 36415; 76870; 81001; 85025; 99285; J7030